=== PATIENT | male | born 1975 | race Caucasian/White ===

== ENCOUNTER 2017-07-22 04:48 | Observation (INO) ==
[2017-07-22] MEDS ORDERED: 0.9 % Sodium Chloride 1,000 ML ONE (08:18)
[2017-07-22] MEDS ORDERED: *HR* FentaNYL (PF) 100 MCG/2 ML VIAL ONE (09:12)
[2017-07-22] MEDS ORDERED: *HR* Midazolam HCl 2 MG/2 ML VIAL ONE (09:12)
[2017-07-22] MEDS ORDERED: *HR* Propofol 200 MG/20 ML VIAL IVP ONE (09:12)
[2017-07-22] MEDS ORDERED: *HR* Succinylcholine 200 MG/10 ML VIAL IVP ONE (09:12)
[2017-07-22] MEDS ORDERED: Lidocaine -MPF 2% 2 ML VIAL ONE (09:12)
[2017-07-22] MEDS ORDERED: Dexamethasone 4 MG/ML VIAL ONE (09:43)
[2017-07-22] MEDS ORDERED: Ondansetron 4 MG/2 ML VIAL ONE (09:43)
--- NOTE | 2017-07-22 10:23 | Urology - Consult Note ---
Date of Encounter: 07/22/17 Time of Encounter: 07:30 - Assessment and Plan (1) Ureteral calculus Current Visit: Yes Status: Acute Assessment and plan: 41-year-old man with a left proximal ureteral stone and evidence of hydronephrosis was admitted for pain control. He has a history of hypertension and diabetes. I recommend proceeding with a cystoscopy and left ureteral stent placement. He was informed of the risks of the procedure including but not limited to bleeding, infection, injury to other structures, need for further procedures, stent irritation, need for nephrostomy tube, need for open repair, risks unforeseen, and the risk of anesthesia. He is willing to proceed. Urology CN:HPI Consult date: 07/22/17 Reason for consult Urology: Other (left ureteral stone) History of present illness: 41-year-old man was admitted for left flank pain after being transferred from [facility]. He has been seen therefore kidney stones. He has had multiple lithotripsies. He developed left flank pain over the last 2 days. It is sharp and severe and radiates to the groin. He went to [facility] and a CT scan showed evidence of an obstructing left proximal ureteral stone. No urology coverage was available. He was then transferred to a [facility]. He has been admitted for pain control. Past Med Surg Social Fam HX - Family History Father Hx Family Genitourinary Disorders: Yes (Kidney stones) Review of Systems - Constitutional no chills, no fever(s) - EENT Nose, mouth and throat: no dizziness - Cardiovascular no chest pain - Respiratory no dyspnea - Gastrointestinal no nausea, no vomiting - Genitourinary flank pain, no hematuria - Musculoskeletal no back pain - Integumentary no erythema, no rash - Neurological no weakness - Psychiatric no suicidal ideation - Hematologic/Lymphatic no easy bleeding - Allergic/Immunologic no wheezing Exam - General physical appearance Present: well developed, well nourished, no distress - Eyes Absent: icteric - ENT Present: normal nares - Neck Present: trachea midline - Respiratory Present: normal respiratory effort - Cardiovascular Cardiovascular exam IM: RRR - Abdomen Abdomen: Present: soft Urology Results - Labs All other labs normal. - Imaging CT scan - abdomen: report reviewed, image reviewed CT scan - pelvis: report reviewed, image reviewed Consult Discharge Plan - Plan Referrals: NONE,PCP [Primary Care Provider] - Still,Steve [Family Provider] -
--- NOTE | 2017-07-22 10:28 | Operative Note ---
Date of procedure: 07/22/17 Pre-op diagnosis: Left proximal ureteral stone Post-op diagnosis: other (Left proximal ureteral stone, urethral stricture) Procedure: Cystoscopy, left ureteral stent placement, catheter placement. Implants: 16 [place] Ernst catheter 4.8 Honduran by 26 cm double-J stent. Complications: None Anesthesia: FRANKLINA Surgeon: Phil Montero Estimated blood loss (cc): 1 Specimen: none Condition: stable Disposition: PACU Procedure in Detail: Indications: Mr. Pace is a 41-year-old male who has a history of nephrolithiasis. He had a CT which showed a left proximal ureteral stone. He elected to undergo a cystoscopy and left ureteral stent placement. He was aware of the risks of the procedure including but not limited to bleeding, infection, injury to other structures, need for further procedures, stent irritation, need for nephrostomy tube, need for open repair, risks otherwise unforeseen, and the risk of anesthesia. He is willing to proceed. Procedure in Detail: After informed consent was obtained the patient was brought back to the operating room and placed in supine position. A time out was performed. General anesthesia was administered and an LMA was placed. He was then placed in the lithotomy position. He was prepped and draped in the usual sterile fashion. Cystoscopy was performed. The anterior urethra showed evidence of a wide caliber stricture. It seemed 1 enough to accommodate the scope. I began to pass the scope through it, but it began to undermine the urethra. I pulled back the scope and noted a small false passage was created. I then removed the cystoscope and obtained the semirigid ureteroscope. The ureteroscope was able to go down the urethra through the true lumen. The remaining of the urethra showed wide caliber urethral strictures. The scope was able to maneuver through these. The prostate showed lateral lobe hyperplasia. I entered into the bladder. The ureteral orifices on the normal orthotopic position. A zip wire was placed up the left ureteral orifice and brought into the kidney under fluoroscopic guidance. A second wire was placed through the semirigid ureteroscope into the bladder. The scope was offloaded leaving both wires in appropriate locations. A 4.8 [place]uran by 26 cm double-J stent was then placed with a good curl seen within the kidney and the bladder. The dangle string was removed. I then placed a 16 [place] Ernst catheter over top of the sensor wire into the bladder. The sensor wire was removed. Clear urine returned. The balloon was filled. The patient was then awakened from general anesthesia and brought to recovery room in good condition. All sponge, needle, and instrument counts were correct.
[2017-07-22 10:45] LABS: Alkaline Phosphatase 79 Units/L (34-104); BUN/Creatinine Ratio 15 (6-26); Bilirubin,Total 0.6 mg/dL (0.3-1.0); Blood Urea Nitrogen 12 mg/dL (6-20); Calcium 9.6 mg/dL (8.6-10.3); Carbon Dioxide 29 mEq/L (23-29); Chloride 106 mEq/L (98-107); Glucose 186 mg/dL (70-105); Osmolality,Calculated 293 (280-300); Potassium 4.1 mEq/L (3.5-5.1); Sodium 139 mEq/L (136-145); eGFR For African Americans > 60 (> 60); eGFR For Non-African Americans > 60 (> 60)
[2017-07-22 10:46] LABS: Alanine Aminotransferase 117 Units/L (7-52); Albumin 4.1 g/dL (3.5-5.7); Albumin/Globulin Ratio 1.9 (1.1-2.2); Aspartate Amino Transferase 59 Units/L (13-39); Globulin 2.2 g/dL (2.4-3.5); Total Protein 6.3 g/dL (6.4-8.9)
[2017-07-22] MEDS ORDERED: Naloxone 0.4 MG/ML INJ IVP PRN ×2 (11:02→11:12)
[2017-07-22] MEDS ORDERED: Acetaminophen 325 MG TABLET PO PRN ×2 (11:02→11:12)
[2017-07-22] MEDS ORDERED: Ondansetron 4 MG/2 ML VIAL IVP PRN ×2 (11:02→11:12)
--- NOTE | 2017-07-22 11:05 | Urology Progress Note ---
Date of Encounter: 07/22/17 Time of Encounter: 11:03 - Assessment and Plan (1) Ureteral calculus Current Visit: Yes Status: Acute Assessment and plan: s/p left ureteral stent and catheter placement. Okay to d/c home when comfortable. Ernst teaching. Progress Note Narrative: Doing well postoperatively. Discussed urethral stricture and catheter. Objective Initial Vital Signs Temp Pulse Resp BP Pulse Ox 97.6 F 65 16 168/101 94 07/22/17 10:21 07/22/17 10:21 07/22/17 10:21 07/22/17 10:21 07/22/17 10:21 - General physical appearance Present: well developed, well nourished, no distress - Respiratory Present: normal respiratory effort - Abdomen Present: soft - Genitourinary Urine Appearance: Present: Clear, Hematuria (Catheter in place with light pink urine.) - Labs 07/22/17 09:13 Diabetes panel 07/22/17 Range/Units 09:13 Sodium 139 (136-145) mEq/L Potassium 4.1 (3.5-5.1) mEq/L Chloride 106 (98-107) mEq/L Carbon Dioxide 29 (23-29) mEq/L BUN 12 (6-20) mg/dL Creatinine 0.80 (0.70-1.30) mg/dL Glucose 186 H (70-105) mg/dL Calcium 9.6 (8.6-10.3) mg/dL AST 59 H (13-39) Units/L ALT 117 H (7-52) Units/L Alkaline Phosphatase 79 (34-104) Units/L Albumin 4.1 (3.5-5.7) g/dL Calcium panel 07/22/17 Range/Units 09:13 Calcium 9.6 (8.6-10.3) mg/dL Albumin 4.1 (3.5-5.7) g/dL Pituitary panel 07/22/17 Range/Units 09:13 Sodium 139 (136-145) mEq/L Potassium 4.1 (3.5-5.1) mEq/L Chloride 106 (98-107) mEq/L Carbon Dioxide 29 (23-29) mEq/L BUN 12 (6-20) mg/dL Creatinine 0.80 (0.70-1.30) mg/dL Glucose 186 H (70-105) mg/dL Calcium 9.6 (8.6-10.3) mg/dL Adrenal panel 07/22/17 Range/Units 09:13 Sodium 139 (136-145) mEq/L Potassium 4.1 (3.5-5.1) mEq/L Chloride 106 (98-107) mEq/L Carbon Dioxide 29 (23-29) mEq/L BUN 12 (6-20) mg/dL Creatinine 0.80 (0.70-1.30) mg/dL Glucose 186 H (70-105) mg/dL Calcium 9.6 (8.6-10.3) mg/dL Total Bilirubin 0.6 (0.3-1.0) mg/dL AST 59 H (13-39) Units/L ALT 117 H (7-52) Units/L Alkaline Phosphatase 79 (34-104) Units/L Albumin 4.1 (3.5-5.7) g/dL Consult Discharge Plan - Plan Additional Instructions: 1. Ernst teaching, leg bag, leg strap, night bag. 2. He can remove catheter on 07/31/2016. Please provide 10ml syringe and teaching. 3. He should return for worsening hematuria, flank pain, or difficulty with catheter. 4. Please provide a 7-10 day work excuse. Referrals: Steve Donaldson [Family Provider] - NONE,PCP [Primary Care Provider] - Phil Montero MD [Partnered Physician] - (Dr. Montero's office will contact for surgery if he decides to have his stone treated here.)
[2017-07-22] MEDS ORDERED: D5% in Water 1,000 ML IVC PRN (11:12)
[2017-07-22] MEDS ORDERED: Dextrose Gel 15 GM PO PRN ×2 (11:12)
[2017-07-22] MEDS ORDERED: *HR* OxyCODONE/APAP 5/325 TABLET PO PRN (11:12)
[2017-07-22] MEDS ORDERED: *HR* Dextrose 50 % in Water (Syg) 50 ML SYRINGE IVP PRN (11:12)
[2017-07-22] MEDS ORDERED: 0.9 % Sodium Chloride 1,000 ML IVC SCH ×3 (11:12→11:15)
--- NOTE | 2017-07-22 11:18 | Internal Med History&Physical ---
Date of Encounter: 07/22/17 Time of Encounter: 11:09 Assessment and Plan (1) Ureteral calculus Current visit: Yes Status: Acute s/p left ureteral stent and catheter placement. Discuss with Dr Montero OK to DC home when comfortable discharge with yap teaching follow up with urology as outpatient (2) Diabetes mellitus Current visit: No Status: Chronic accucheck AC HS with SSI insulin Diabetic diet Qualifiers: Diabetes mellitus type: type 2 Diabetes mellitus complication status: without complication Diabetes mellitus emt intermediate insulin use: without emt intermediate use Qualified Code(s): E11.9 - Type 2 diabetes mellitus without complications (3) HTN (hypertension) Current visit: Yes Status: Acute Presently controlled- will continue with home medications Qualifiers: Hypertension type: essential hypertension Qualified Code(s): I10 - Essential (primary) hypertension Internal Medicine - H&P: HPI Chief complaint: kidney stone Admitted From: Hospital to Hospital Transfer Plans for Post Hospital Care: Home History of present illness: Mr. Pace is a 41 year old male past medical hx of DM2 and HTN,. He has been experiencing Left flank pain which started early Sat morning. It was aharp and radiate to L groin. He has hx of kidney stones and previous lithotripsies. He prsented to [facility] ER with the above complaint. CT scan showed evidence of an obstructiong left proximal ureteral stone. No urology coverage was available and he was transfered to this facillity for further workup and eval. Lab work did not revela any FABRICE. Urology consulted. He was seen by Dr Montero( urology ) and was taken to OR and had left ureteral stent and yap cathter placement. He tolerated procedure well and is hemodynamically stable at this time Past Med Surg Social Fam HX - Family History Father Hx Family Genitourinary Disorders: Yes (Kidney stones) Internal Medicine - H&P: Meds Lisinopril-HCTZ 20-12.5 [Prinzide 20-12.5] 1 each PO 07/22/17 [History] Simvastatin [Zocor] 20 mg PO DAILY 07/22/17 [History] SitaGLIPtin [Januvia] 07/22/17 [History] metFORMIN [Glucophage] 500 mg PO BIDWM 07/22/17 [History] 3 Allergy/AdvReac Type Severity Reaction Status Date / Time codeine Allergy See Verified 07/22/17 10:45 Comments Penicillins Allergy See Verified 07/22/17 10:45 Comments All Systems PM: A 10-system review of systems was performed and is negative for pertinent findings except as documented above in the HPI. - Constitutional Constitutional: no chills, no fever(s), no night sweats - EENT Eyes: no change in vision, no discharge, no pain, no photophobia Ears: no ear discharge, no ear pain, no tinnitus Nose, mouth and throat: no dysphagia, no nasal discharge, no neck pain, no sore throat - Cardiovascular Cardiovascular ROS IM: no chest pain, no diaphoresis, no dyspnea, no lightheadedness, no palpitations, no syncope - Respiratory Respiratory: no cough, no dyspnea, no wheezing, no excessive phlegm production - Gastrointestinal Gastrointestinal: no abdominal pain, no diarrhea, no hematemesis, no hematochezia, no melena, no nausea, no vomiting - Genitourinary Genitourinary ROS male: flank pain - Musculoskeletal Musculoskeletal ROS IM: no numbness, no tingling - Integumentary Integumentary IM: no rash, no unusual bruising - Neurological Neurological ROS: no confusion, no convulsions, no focal weakness, no numbness, no tingling, no tremor(s) - Hematologic/Lymphatic Hematologic/Lymphatic: no easy bruising - Constitutional Vitals: Temp Pulse Resp BP Pulse Ox 97.6 F 65 16 168/101 94 07/22/17 10:21 07/22/17 10:21 07/22/17 10:21 07/22/17 10:21 07/22/17 10:21 General appearance: Present: A&O X 3, answers questions appropriately - Head Head exam: Present: atraumatic, normocephalic - Eye Eye exam: Present: PERRL, conjuntiva pink, sclera anicteric Pupils: Present: PERRL - Neck Neck exam general surgery: Present: supple, trachea midline. Absent: lymphadenopathy - Respiratory Respiratory exam: Present: CTAB. Absent: accessory muscle use, rales, rhonchi, wheezes - Cardiovascular Cardiovascular exam: Present: RRR, +S1, +S2. Absent: diastolic murmur, gallop, rubs, systolic murmur - GI/Abdominal GI/Abdominal exam: Present: normal bowel sounds, soft, no peritoneal signs. Absent: distended, tenderness - Extremities Exam Extremities exam: Present: warm, radial pulses palpable and symmetrical. Absent : calf tenderness, cyanotic, pedal edema - Neurological Exam Neurological exam: Present: CN II-XII intact, oriented X3, no focal deficits. Absent: pronater drift, facial droop, speech deficit - Skin Skin exam: Present: dry, intact Internal Med - H&P Results - Labs CBC & Chem 7: 07/22/17 09:13 Labs: BMP 07/22/17 09:13 Sodium 139 Potassium 4.1 Chloride 106 Carbon Dioxide 29 BUN 12 Creatinine 0.80 Glucose 186 H Calcium 9.6 Liver Function 07/22/17 Range/Units 09:13 Total Bilirubin 0.6 (0.3-1.0) mg/dL AST 59 H (13-39) Units/L ALT 117 H (7-52) Units/L Alkaline Phosphatase 79 (34-104) Units/L Albumin 4.1 (3.5-5.7) g/dL - Impressions ITS Impressions Fluoroscopy 07/22/17 09:40 IMPRESSION: Intraprocedural fluoroscopic spot images as above. See separate procedure report for more information. D/ / Leonardo Scott MD / Leonardo Scott MD Interpreting Provider: Leonardo Scott MD X-Ray 07/22/17 09:40
[2017-07-22] MEDS: Insulin LISPRO 300 UNITS/3 ML VIAL SQ SCH ×2 (12:25→17:00)
[2017-07-22] MEDS: *HR* HYDROmorphone (PF) 1 MG/ML SYRINGE IVP PRN ×4 (12:48→17:03)
--- NOTE | 2017-07-22 16:20 | Discharge Summary ---
Date of Encounter: 07/22/17 Time of Encounter: 16:13 - Discharge Diagnosis (1) Ureteral calculus Priority: Primary Status: Acute Comments: s/p left ureteral stent and catheter placement. Discuss with Dr Montero OK to DC home when comfortable discharge with yap teaching follow up with urology as outpatient (2) Diabetes mellitus Priority: Secondary Status: Chronic Comments: resume home medications Qualifiers: Diabetes mellitus type: type 2 Diabetes mellitus complication status: without complication Diabetes mellitus fpc insulin use: without fpc use Qualified Code(s): E11.9 - Type 2 diabetes mellitus without complications (3) HTN (hypertension) Priority: Secondary Status: Acute Comments: resume home medications Qualifiers: Hypertension type: essential hypertension Qualified Code(s): I10 - Essential (primary) hypertension - Discharge Medications Home Medications: Lisinopril-HCTZ 20-12.5 [Prinzide 20-12.5] 1 each PO 07/22/17 [History] Simvastatin [Zocor] 20 mg PO DAILY 07/22/17 [History] SitaGLIPtin [Januvia] 07/22/17 [History] metFORMIN [Glucophage] 500 mg PO BIDWM 07/22/17 [History] Allergies/Adverse Reactions: 3 Allergy/AdvReac Type Severity Reaction Status Date / Time codeine Allergy See Verified 07/22/17 10:45 Comments Penicillins Allergy See Verified 07/22/17 10:45 Comments Procedures/tests Complete & Pending: s/p left ureteral stent and catheter placement. Date of admission: 07/22/17 10:12 Primary care physician: Jamil Meek Discharging clinician: Katie Gill Anticipated date of discharge: 07/22/17 - Patient Status Disposition: Home, Self-Care Condition: Good Functional capacity at discharge: independent ambulation Overall status at discharge: patient is back to baseline - Discharge Instructions Instructions: Renal Colic (GEN), Urinary Leg Bag (GEN) Follow Up With: Steve Donaldson [Family Provider] - Phil Montero MD [Partnered Physician] - (Dr. Montero's office will contact for surgery if he decides to have his stone treated here.) NONE,PCP [Non-Partnered Physician] - Forms: Work/School Release Additional Instructions: 1. Yap teaching, leg bag, leg strap, night bag. 2. He can remove catheter on 07/31/2016. Please provide 10ml syringe and teaching. 3. He should return for worsening hematuria, flank pain, or difficulty with catheter. 4. Please provide a 7-10 day work excuse. - Diet and Activity Activity: increase activity as tolerated Diet: advance to your usual diet Hospital course: Mr. Pace is a 41 year old male male past medical hx of DM2 and HTN,. He has been experiencing Left flank pain which started early Sat morning. It was aharp and radiate to L groin. He has hx of kidney stones and previous lithotripsies. He prsented to [facility] ER with the above complaint. CT scan showed evidence of an obstructiong left proximal ureteral stone. No urology coverage was available and he was transfered to this facillity for further workup and eval. Lab work did not revela any FABRICE. Urology consulted. He was seen by Dr Montero( urology ) and was taken to OR and had left ureteral stent and yap cathter placement. He tolerated procedure well. He was monitored, he tolerated walking, eating and pain is presently controlled. I reviewed pain medication, with him and he reports he has approx 14-15 percocet at home from the ER. I advised him to continue Percocet and to continue home medications as prescribed. He is to follow up with urology, and expressed that he understood yap care instructions. I answered questions asked by patient and his . He hemodynamically stable at this time and is ready for discharge. - Time Spent with Patient Total time spent providing and/or coordinating discharge services: - Constitutional Vitals: Temp Pulse Resp BP Pulse Ox 97.8 F 68 20 142/88 97 07/22/17 11:30 07/22/17 11:30 07/22/17 11:30 07/22/17 11:30 07/22/17 11:30 General appearance: Present: A&O X 3, answers questions appropriately - Head Head exam: Present: atraumatic, normocephalic - Eye Eye exam: Present: PERRL, conjuntiva pink, sclera anicteric Pupils: Present: PERRL - Neck Neck exam general surgery: Present: supple, trachea midline. Absent: lymphadenopathy - Respiratory Respiratory exam: Present: CTAB. Absent: accessory muscle use, rales, rhonchi, wheezes - Cardiovascular Cardiovascular exam: Present: RRR, +S1, +S2. Absent: diastolic murmur, gallop, rubs, systolic murmur - GI/Abdominal GI/Abdominal exam: Present: normal bowel sounds, soft, no peritoneal signs. Absent: distended, tenderness - Extremities Exam Extremities exam: Present: warm, radial pulses palpable and symmetrical. Absent : calf tenderness, cyanotic, pedal edema - Neurological Exam Neurological exam: Present: CN II-XII intact, oriented X3, no focal deficits. Absent: pronater drift, facial droop, speech deficit - Skin Skin exam: Present: dry, intact
--- NOTE | 2017-07-24 16:40 | Electrocardiograph Report ---
[address] [place] [address] Test Date: 2017-07-22 Pat Name: Juan Alberto Pace Department: [id number] Room: 3A16 Gender: M Legal Analyst: TIMBO : 1975 Requested By: Juni Mack Order Number: [id number] Reading MD: Darek Deras MD Measurements Intervals Elim Rate: 63 P: 19 NE: 164 QRS: 21 QRSD: 108 T: 10 QT: 384 QTc: 391 Interpretive Statements SINUS RHYTHM POSSIBLE INFERIOR MYOCARDIAL INFARCTION, PROBABLY OLD Electronically Signed On 07-24-2017 16:39:05 EST by Darek Deras MD
== END 2017-07-22 17:48 | disposition home or self-care (01) ==
LOC: 3ANU
PROVIDERS: ADMIT Urology; ATTEND Internal Medicine

== ENCOUNTER 2017-07-27 09:19 | Inpatient (IN) ==
[2017-07-27] MEDS ORDERED: 0.9 % Sodium Chloride 1,000 ML IVC ONE (09:33)
[2017-07-27] MEDS ORDERED: Ondansetron 4 MG/2 ML VIAL IVP ONE (09:33)
[2017-07-27] MEDS ORDERED: *HR* Morphine 2 MG/ML SYRINGE IVP ONE (09:33)
[2017-07-27] MEDS ORDERED: cefTRIAXone 1,000 MG in Water for inj. (sterile) 20 ML 10 ML IVP ONE (09:34)
[2017-07-27] MEDS ORDERED: Ketorolac 15 MG/ML VIAL IVP ONE (09:37)
--- NOTE | 2017-07-27 09:37 | Emergency Department Note ---
Disposition Clinical Impression: Pyelonephritis Disposition: Admitted As Inpatient Condition: Good Instructions: Acute Pyelonephritis (ED) Reasons to Return/Additional Instructions: Please take the Levaquin as prescribed for pyelonephritis. Please take the Zofran as prescribed as needed for nausea and vomiting. Please follow-up with Dr. Montero next week for evaluation. Please call his office when next available to schedule an appointment. Please return to the ER if you have worsening of symptoms, worsening pain, vomiting, unable to keep down fluids or medications or any concerns. Prescriptions: Ondansetron ODT [Zofran ODT] 4 mg SL Q6HR PRN #14 tab.rapdis PRN Reason: Nausea And Vomiting levoFLOXacin [Levaquin] 750 mg PO DAILY #14 tablet Referrals: Jamil Meek [Primary Care Provider] - Steve Donaldson [Family Provider] - Phil Montero MD [Partnered Physician] - Forms: ED Satisfaction Letter, Work/School Release General Adult HPI - General Chief complaint: ED Abdominal Pain Stated complaint: Kidney stone Time Seen by Provider: 07/27/17 09:24 Source: patient Limitations: no limitations Nursing Notes Reviewed: Yes Vital Signs Reviewed: Yes - History of Present Illness Pain Scale: 8 - Related Data Home Medications Medication Instructions Recorded Confirmed Lisinopril-HCTZ 20-12.5 [Prinzide 1 each PO 07/22/17 20-12.5] Simvastatin [Zocor] 20 mg PO DAILY 07/22/17 07/22/17 SitaGLIPtin [Januvia] 07/22/17 07/22/17 metFORMIN [Glucophage] 500 mg PO BIDWM 07/22/17 07/22/17 Previous Rx's Medication Instructions Recorded Ondansetron ODT [Zofran ODT] 4 mg SL Q6HR PRN #14 tab.rapdis 07/27/17 levoFLOXacin [Levaquin] 750 mg PO DAILY #14 tablet 07/27/17 Allergies Allergy/AdvReac Type Severity Reaction Status Date / Time codeine Allergy See Verified 07/22/17 10:45 Comments Penicillins Allergy See Verified 07/22/17 10:45 Comments Past Medical History - Past Medical History Medical history: Reports: diabetes, hyperlipidemia, hypertension, kidney stones - Social History Smoking Status: Never smoker Alcohol use: Reports: none Drug use: Reports: none Physical Exam - General Limitations: no limitations General appearance: alert, in no apparent distress Course Vital Signs Temperature 100.0 F H 07/27/17 09:21 Pulse Rate 105 07/27/17 09:21 Respiratory Rate 18 07/27/17 09:21 Blood Pressure 148/82 07/27/17 09:21 O2 Sat by Pulse Oximetry 97 07/27/17 09:21 Temperature 101.4 F H 07/27/17 11:58 Pulse Rate 104 07/27/17 11:58 Respiratory Rate 20 07/27/17 11:58 Blood Pressure 158/90 07/27/17 11:58 O2 Sat by Pulse Oximetry 100 07/27/17 11:58 Oxygen Delivery Oxygen Delivery Room Air Medical Decision Making - MDM Narrative Medical decision making narrative: This documentation is done with the assistance of Dragon dictation. Despite efforts to ensure accuracy, there may be inaccuracies in line service technician or spelling and typographical errors. I examined this patient and my medical decision-making was reviewed with the Resident Physician. I agree with the documented findings, disposition and treatment plan as described except to the extent set forth below. I evaluated this patient on arrival with Dr. Rosen, I agree with his evaluation and management plan, supervise care the patient that stay. Patient's of multiple kidney stones in the past. This wounds on the left side. 8mm stone per him and records. He was admitted here on Anthony Cristine they placed a stent but were not able to remove the stone. He is getting a little bit of fever now. Some nausea pain. Going to administer medications to make him more comfortable starting him on IV antibiotics. Image the area check labs and speak with urology. He is in agreement with this plan. He has a nonsurgical abdomen. 1049 hrs.: Patient states he uses BiPAP at home are also have apnea. So we have ordered that for him now. Waiting on CT scan. He is feeling better. Abdomen/Pelvis CT 07/27/17 09:33 IMPRESSION: Nonobstructive calculi in the bilateral kidneys. A left-sided double pigtail ureteral catheter is in good position. No evidence of left or right hydronephrosis or obstructive uropathy. Nonspecific fat stranding surrounding the bilateral kidneys and the left ureter. The current study is not optimal to evaluate for pyelonephritis. Infection or inflammation particularly in the left kidney and ureter is not excluded. Recommend correlation with urinalysis. Mild sigmoid diverticulosis without evidence of acute diverticulitis. Mild fatty liver disease. Dependent and discoid atelectasis at the bilateral lung bases. D/ / Asher Andino MD / Asher Andino MD Interpreting Provider: Asher Andino MD 1100 hrs.: Patient's CT is back. He has no elevation in his white count. Renal function is stable. Werewith him about what he would prefer to do with her go home or be admitted. We will speak with urology also. 1200 hrs.: Urology thought the patient could go home but patient's getting more febrile and getting riders here. I think be better for him to come into the hospital. Patient's in agreement with plan. Has gotten IV antibiotics already. Fluids acetaminophen and then will reassess. He is in agreement with plan. - Lab Data Result diagrams: 07/27/17 09:47 07/27/17 09:47 Lab Results 07/27/17 07/27/17 07/27/17 Range/Units 09:47 09:47 09:50 WBC 9.8 (4.3-11.1) K/mcL RBC 5.21 (4.19-5.50) M/mcL Hgb 15.2 (12.9-16.9) g/dL Hct 43.1 (37.5-50.1) % MCV 82.7 L (83.0-100.0) fL MCH 29.2 (28.0-33.3) pg MCHC 35.3 (31.6-35.5) g/dL RDW 12.0 (11.5-14.5) % Plt Count 192 (140-400) K/mcL MPV 10.1 (9.4-12.4) fL Immature Gran % 0.4 (0-4) % Seg Neutrophils % 84.6 % Lymphocytes % 6.2 % Monocytes % 8.1 % Eosinophils % 0.5 % Basophils % 0.2 % Neutrophils # 8.3 (1.6-8.9) K/mcL Lymphocytes # 0.6 (0.6-4.6) K/mcL Monocytes # 0.8 (0.0-1.3) K/mcL Eosinophils # 0.1 (0.0-0.6) K/mcL Basophils # 0.0 (0.0-0.2) K/mcL Sodium 133 L (136-145) mEq/L Potassium 4.0 (3.5-5.1) mEq/L Chloride 99 (98-107) mEq/L Carbon Dioxide 26 (23-29) mEq/L BUN 14 (6-20) mg/dL Creatinine 0.87 (0.70-1.30) mg/dL Est GFR ( Amer) > 60 (> 60) Est GFR (Non-Af Amer) > 60 (> 60) BUN/Creatinine Ratio 16 (6-26) Glucose 222 H (70-105) mg/dL Calculated Osmolality 283 (280-300) Lactic Acid 1.6 (0.5-2.2) mmol/L Calcium 10.4 H (8.6-10.3) mg/dL Urine Color (Yellow) Urine Clarity (Clear) Urine pH (5.0-8.0) pH Units Ur Specific [place] (1.010-1.025) Urine Protein (Neg-Trace) mg/dL Urine Glucose (UA) (Normal) mg/dL Urine Ketones (Negative) mg/dL Urine Blood (Negative) Urine Nitrite (Negative) Urine Bilirubin (Negative) Urine Urobilinogen (Normal) mg/dL Ur Leukocyte Esterase (Negative) Urine Microscopic RBC (0-3) per hpf Urine Microscopic WBC (0-3) per hpf Ur Squamous Epith Cells (None-Few) per lpf Urine Bacteria (None-Few) per hpf Hyaline Casts (None-Few) per lpf Ur Culture Indicated? (NO) 07/27/17 Range/Units 10:03 WBC (4.3-11.1) K/mcL RBC (4.19-5.50) M/mcL Hgb (12.9-16.9) g/dL Hct (37.5-50.1) % MCV (83.0-100.0) fL MCH (28.0-33.3) pg MCHC (31.6-35.5) g/dL RDW (11.5-14.5) % Plt Count (140-400) K/mcL MPV (9.4-12.4) fL Immature Gran % (0-4) % Seg Neutrophils % % Lymphocytes % % Monocytes % % Eosinophils % % Basophils % % Neutrophils # (1.6-8.9) K/mcL Lymphocytes # (0.6-4.6) K/mcL Monocytes # (0.0-1.3) K/mcL Eosinophils # (0.0-0.6) K/mcL Basophils # (0.0-0.2) K/mcL Sodium (136-145) mEq/L Potassium (3.5-5.1) mEq/L Chloride (98-107) mEq/L Carbon Dioxide (23-29) mEq/L BUN (6-20) mg/dL Creatinine (0.70-1.30) mg/dL Est GFR ( Amer) (> 60) Est GFR (Non-Af Amer) (> 60) BUN/Creatinine Ratio (6-26) Glucose (70-105) mg/dL Calculated Osmolality (280-300) Lactic Acid (0.5-2.2) mmol/L Calcium (8.6-10.3) mg/dL Urine Color Dark Yellow (Yellow) Urine Clarity Turbid A (Clear) Urine pH 6.5 (5.0-8.0) pH Units Ur Specific [place] 1.023 (1.010-1.025) Urine Protein 100 H (Neg-Trace) mg/dL Urine Glucose (UA) 250 H (Normal) mg/dL Urine Ketones Negative (Negative) mg/dL Urine Blood Large H (Negative) Urine Nitrite Negative (Negative) Urine Bilirubin Negative (Negative) Urine Urobilinogen Normal (Normal) mg/dL Ur Leukocyte Esterase Moderate H (Negative) Urine Microscopic RBC TNTC H (0-3) per hpf Urine Microscopic WBC 50-100 H (0-3) per hpf Ur Squamous Epith Cells Few (None-Few) per lpf Urine Bacteria Many H (None-Few) per hpf Hyaline Casts None Seen (None-Few) per lpf Ur Culture Indicated? YES A (NO)
--- NOTE | 2017-07-27 09:43 | Emergency Department Note ---
Disposition Clinical Impression: Pyelonephritis Disposition: Admitted As Inpatient Condition: Good Instructions: Acute Pyelonephritis (ED) Reasons to Return/Additional Instructions: Please take the Levaquin as prescribed for pyelonephritis. Please take the Zofran as prescribed as needed for nausea and vomiting. Please follow-up with Dr. Montero next week for evaluation. Please call his office when next available to schedule an appointment. Please return to the ER if you have worsening of symptoms, worsening pain, vomiting, unable to keep down fluids or medications or any concerns. Prescriptions: Ondansetron ODT [Zofran ODT] 4 mg SL Q6HR PRN #14 tab.rapdis PRN Reason: Nausea And Vomiting levoFLOXacin [Levaquin] 750 mg PO DAILY #14 tablet Referrals: Jamil Meek [Primary Care Provider] - Steve Donaldson [Family Provider] - Phil Montero MD [Partnered Physician] - Forms: Work/School Release, ED Satisfaction Letter Time of Disposition: 11:22 Abdominal Pain HPI - General Chief Complaint: ED Abdominal Pain Stated Complaint: Kidney stone Time Seen by Provider: 07/27/17 09:24 Source: patient Mode of arrival: private vehicle Limitations: no limitations Nursing Notes Reviewed: Yes Vital Signs Reviewed: Yes - History of Present Illness HPI Narrative: 41-year-old male history of multiple nephrolithiasis in the past who presents to the ER to the left flank pain and fever nausea. Patient states he started having pain on Anthony Cristine and was noted to have an 8 mm proximal ureteral stone an outside facility and transferred here due to lack of availability of urology. Patient underwent cystoscopy with left ureteral stent placement. Reports he went home feeling okay but then started having pain again yesterday into today. Describes it as sharp left-sided flank pain. States is worse whenever he tries to have a bowel movement. He also noted have a fever of 101 this morning at home. No flulike symptoms. No vomiting or diarrhea. Reports his urine has cleared up. He did have a Ernst placed and was left after the procedure. No other complaints. Pt Subjective Complaint: flank pain Onset (ago): day(s) Consistency: intermittent Location: L flank Pain Severity: severe Pain Scale: 8 Quality: stabbing Radiation: none Migration to: no migration Improves with: nothing Worsens with: nothing Associated symptoms: Reports: nausea, fever. Denies: vomiting, diarrhea, dysuria, hematuria Treatments prior to arrival: none - Related Data Home Medications Medication Instructions Recorded Confirmed Lisinopril-HCTZ 20-12.5 [Prinzide 1 each PO 07/22/17 20-12.5] Simvastatin [Zocor] 20 mg PO DAILY 07/22/17 07/22/17 SitaGLIPtin [Januvia] 07/22/17 07/22/17 metFORMIN [Glucophage] 500 mg PO BIDWM 07/22/17 07/22/17 Previous Rx's Medication Instructions Recorded Ondansetron ODT [Zofran ODT] 4 mg SL Q6HR PRN #14 tab.rapdis 07/27/17 levoFLOXacin [Levaquin] 750 mg PO DAILY #14 tablet 07/27/17 Allergies Allergy/AdvReac Type Severity Reaction Status Date / Time codeine Allergy See Verified 07/22/17 10:45 Comments Penicillins Allergy See Verified 07/22/17 10:45 Comments All systems ED: reviewed and negative except as stated. Constitutional: Reports: fever Cardiovascular: Denies: chest pain Respiratory: Denies: dyspnea Gastrointestinal: Reports: abdominal pain, nausea. Denies: vomiting, diarrhea Genitourinary: Denies: dysuria, hematuria Musculoskeletal: Reports: back pain Abdominal Pain PMH - Past Medical History Medical history: Reports: diabetes, hyperlipidemia, hypertension, kidney stones Male Surgical History: Reports: non-contributory - Social History Smoking status: Never smoker Alcohol use: Reports: none Drug use: Reports: none Physical Exam - General Limitations: no limitations General appearance: alert, in no apparent distress - Head Head exam: atraumatic, normocephalic - Eye Eye exam: Present: normal appearance - ENT ENT exam: normal exam - Neck Neck exam: Present: normal inspection, full ROM - Chest Chest inspection: Present: normal inspection, symmetric chest wall rise - Respiratory Respiratory exam: Present: normal lung sounds bilaterally - Cardiovascular Cardiovascular exam: Present: regular rate, normal rhythm, normal heart sounds - Abdominal Exam Abdominal exam: Present: soft, Non-Tender. Absent: tenderness, distention, guarding, rigidity - Extremities Exam Extremities exam: Present: normal inspection, full ROM - Expanded Upper Extremity Exam Shoulder exam: Present: normal inspection, full ROM Arm exam: Present: normal inspection, full ROM Elbow exam: Present: normal inspection, full ROM Forearm/Wrist exam: Present: normal inspection, full ROM Hand exam: Present: normal inspection, full ROM - Expanded Lower Extremity Exam Hip/Pelvis exam: Present: normal inspection, full ROM Upper leg exam: Present: normal inspection, full ROM Knee exam: Present: normal inspection, full ROM Lower leg exam: Present: normal inspection, full ROM Ankle exam: Present: normal inspection, full ROM Foot/toe exam: Present: normal inspection, full ROM - Back Exam Back exam: Present: CVA tenderness (L) - Neurological Exam Neurological exam: Present: alert, other (GCS 15, Nonfocal ) - Psychiatric Psychiatric exam: Present: normal affect - Skin Skin exam: Present: warm, dry, intact Course Course Narrative: Patient seen and examined. Vital signs reviewed. We will obtain a CT scan of the abdomen and pelvis given his fever and recent admission patient as well as labs and urinalysis. Patient given IV morphine, Benadryl, Toradol and Rocephin. - Reevaluation(s) Reevaluation #1: Patient reevaluated currently feeling much better. Discussed CT report as well as labs and urinalysis. Waiting on urology consultation. Reevaluation #2: Patient having rigors in the room with recurrence of fever. We will discuss with the hospitalist for admission. - Consultations Consultation #1: I spoke with the on-call urologist Dr. Palma. Discussed the patient's history exam imaging and labs to date. He reports he believes the patient can be treated as an outpatient to start on Bactrim or for quinolone for pyelonephritis. He also needs to be seen next week by Dr. Montero for follow- up. Vital Signs Temperature 100.0 F H 07/27/17 09:21 Pulse Rate 105 07/27/17 09:21 Respiratory Rate 18 07/27/17 09:21 Blood Pressure 148/82 07/27/17 09:21 O2 Sat by Pulse Oximetry 97 07/27/17 09:21 Temperature 101.4 F H 07/27/17 11:58 Pulse Rate 104 07/27/17 11:58 Respiratory Rate 20 07/27/17 11:58 Blood Pressure 158/90 07/27/17 11:58 O2 Sat by Pulse Oximetry 100 07/27/17 11:58 Oxygen Delivery Oxygen Delivery Room Air Abdominal Pain - MDM Narrative Medical decision making narrative: 41-year-old male presents to the ER due to fever left flank pain and nausea. Recent issue mentation with a ureteral stent due to proximal obstructive uropathy. Patient noted to be febrile 100 here as well as nauseated. His abdominal exam is nonsurgical. CT scan demonstrates bilateral fat stranding with some inflammation around the left ureter. Urinalysis demonstrates a UTI however he also has the stent in so likely contaminant. White count normal. Renal function within normal limits. No prior cultures available. Case discussed with the urologist combination man who recommends outpatient antibiotics with follow-up with his urologist this coming week. Upon reevaluation the patient was noted to be febrile again with rigors and recurrence of flank pain. We will discuss with the hospitalist and admitted for pyelonephritis. - Lab Data Lab results reviewed: Yes I reviewed the patient's lab results. Result diagrams: 07/27/17 09:47 07/27/17 09:47 Lab Results 07/27/17 07/27/17 07/27/17 Range/Units 09:47 09:47 09:50 WBC 9.8 (4.3-11.1) K/mcL RBC 5.21 (4.19-5.50) M/mcL Hgb 15.2 (12.9-16.9) g/dL Hct 43.1 (37.5-50.1) % MCV 82.7 L (83.0-100.0) fL MCH 29.2 (28.0-33.3) pg MCHC 35.3 (31.6-35.5) g/dL RDW 12.0 (11.5-14.5) % Plt Count 192 (140-400) K/mcL MPV 10.1 (9.4-12.4) fL Immature Gran % 0.4 (0-4) % Seg Neutrophils % 84.6 % Lymphocytes % 6.2 % Monocytes % 8.1 % Eosinophils % 0.5 % Basophils % 0.2 % Neutrophils # 8.3 (1.6-8.9) K/mcL Lymphocytes # 0.6 (0.6-4.6) K/mcL Monocytes # 0.8 (0.0-1.3) K/mcL Eosinophils # 0.1 (0.0-0.6) K/mcL Basophils # 0.0 (0.0-0.2) K/mcL Sodium 133 L (136-145) mEq/L Potassium 4.0 (3.5-5.1) mEq/L Chloride 99 (98-107) mEq/L Carbon Dioxide 26 (23-29) mEq/L BUN 14 (6-20) mg/dL Creatinine 0.87 (0.70-1.30) mg/dL Est GFR ( Amer) > 60 (> 60) Est GFR (Non-Af Amer) > 60 (> 60) BUN/Creatinine Ratio 16 (6-26) Glucose 222 H (70-105) mg/dL Calculated Osmolality 283 (280-300) Lactic Acid 1.6 (0.5-2.2) mmol/L Calcium 10.4 H (8.6-10.3) mg/dL Urine Color (Yellow) Urine Clarity (Clear) Urine pH (5.0-8.0) pH Units Ur Specific [place] (1.010-1.025) Urine Protein (Neg-Trace) mg/dL Urine Glucose (UA) (Normal) mg/dL Urine Ketones (Negative) mg/dL Urine Blood (Negative) Urine Nitrite (Negative) Urine Bilirubin (Negative) Urine Urobilinogen (Normal) mg/dL Ur Leukocyte Esterase (Negative) Urine Microscopic RBC (0-3) per hpf Urine Microscopic WBC (0-3) per hpf Ur Squamous Epith Cells (None-Few) per lpf Urine Bacteria (None-Few) per hpf Hyaline Casts (None-Few) per lpf Ur Culture Indicated? (NO) 07/27/17 Range/Units 10:03 WBC (4.3-11.1) K/mcL RBC (4.19-5.50) M/mcL Hgb (12.9-16.9) g/dL Hct (37.5-50.1) % MCV (83.0-100.0) fL MCH (28.0-33.3) pg MCHC (31.6-35.5) g/dL RDW (11.5-14.5) % Plt Count (140-400) K/mcL MPV (9.4-12.4) fL Immature Gran % (0-4) % Seg Neutrophils % % Lymphocytes % % Monocytes % % Eosinophils % % Basophils % % Neutrophils # (1.6-8.9) K/mcL Lymphocytes # (0.6-4.6) K/mcL Monocytes # (0.0-1.3) K/mcL Eosinophils # (0.0-0.6) K/mcL Basophils # (0.0-0.2) K/mcL Sodium (136-145) mEq/L Potassium (3.5-5.1) mEq/L Chloride (98-107) mEq/L Carbon Dioxide (23-29) mEq/L BUN (6-20) mg/dL Creatinine (0.70-1.30) mg/dL Est GFR ( Amer) (> 60) Est GFR (Non-Af Amer) (> 60) BUN/Creatinine Ratio (6-26) Glucose (70-105) mg/dL Calculated Osmolality (280-300) Lactic Acid (0.5-2.2) mmol/L Calcium (8.6-10.3) mg/dL Urine Color Dark Yellow (Yellow) Urine Clarity Turbid A (Clear) Urine pH 6.5 (5.0-8.0) pH Units Ur Specific [place] 1.023 (1.010-1.025) Urine Protein 100 H (Neg-Trace) mg/dL Urine Glucose (UA) 250 H (Normal) mg/dL Urine Ketones Negative (Negative) mg/dL Urine Blood Large H (Negative) Urine Nitrite Negative (Negative) Urine Bilirubin Negative (Negative) Urine Urobilinogen Normal (Normal) mg/dL Ur Leukocyte Esterase Moderate H (Negative) Urine Microscopic RBC TNTC H (0-3) per hpf Urine Microscopic WBC 50-100 H (0-3) per hpf Ur Squamous Epith Cells Few (None-Few) per lpf Urine Bacteria Many H (None-Few) per hpf Hyaline Casts None Seen (None-Few) per lpf Ur Culture Indicated? YES A (NO) - Radiology Data Radiology results reviewed: Yes I reviewed the patient's radiology results. Abdomen/Pelvis CT 07/27/17 09:33 IMPRESSION: Nonobstructive calculi in the bilateral kidneys. A left-sided double pigtail ureteral catheter is in good position. No evidence of left or right hydronephrosis or obstructive uropathy. Nonspecific fat stranding surrounding the bilateral kidneys and the left ureter. The current study is not optimal to evaluate for pyelonephritis. Infection or inflammation particularly in the left kidney and ureter is not excluded. Recommend correlation with urinalysis. Mild sigmoid diverticulosis without evidence of acute diverticulitis. Mild fatty liver disease. Dependent and discoid atelectasis at the bilateral lung bases. D/ / Asher Andino MD / Asher Andino MD Interpreting Provider: Asher Andino MD Ja - Ja Situation: Demographics, MOA Background: Presenting Complaint, Relevant PMH, Meds, & Allergies Assessment: Course and respsone to treatment, Patient/Family Expectation, Pertinant Lab Results Recommendation: Barrier(s) to disposition, Recommendation based on pending studies, treatments, or consults Ja Report Given to: Dr. Jurgen Peres Repor Time: 12:52
[2017-07-27 09:52] LABS: Basophils % 0.2 %; Eosinophils # 0.1 K/mcL (0.0-0.6); Eosinophils % 0.5 %; Hematocrit 43.1 % (37.5-50.1); Hemoglobin 15.2 g/dL (12.9-16.9); Immature Granulocytes % 0.4 % (0-4); Lymphocytes # 0.6 K/mcL (0.6-4.6); Lymphocytes % 6.2 %; Mean Corpuscular HGB Conc 35.3 g/dL (31.6-35.5); Mean Corpuscular Hemoglobin 29.2 pg (28.0-33.3); Mean Corpuscular Volume 82.7 fL (83.0-100.0); Mean Platelet Volume 10.1 fL (9.4-12.4); Monocytes # 0.8 K/mcL (0.0-1.3); Monocytes % 8.1 %; Neutrophils # 8.3 K/mcL (1.6-8.9); Platelet Count 192 K/mcL (140-400); Red Blood Count 5.21 M/mcL (4.19-5.50); Segmented Neutrophils % 84.6 %
[2017-07-27 10:09] LABS: BUN/Creatinine Ratio 16 (6-26); Blood Urea Nitrogen 14 mg/dL (6-20); Calcium 10.4 mg/dL (8.6-10.3); Carbon Dioxide 26 mEq/L (23-29); Chloride 99 mEq/L (98-107); Glucose 222 mg/dL (70-105); Osmolality,Calculated 283 (280-300); Sodium 133 mEq/L (136-145); eGFR For African Americans > 60 (> 60); eGFR For Non-African Americans > 60 (> 60)
[2017-07-27 10:12] LABS: Bilirubin,Urine Negative (Negative); Blood,Urine Large (Negative); Clarity,Urine Turbid (Clear); Color,Urine Dark Yellow (Yellow); Glucose,Urine (UA) 250 mg/dL (Normal); Ketones,Urine Negative (Negative); Leukocyte Esterase,Urine Moderate (Negative); Nitrite,Urine Negative (Negative); PH,Urine 6.5 pH Units (5.0-8.0); Protein,Urine 100 mg/dL (Neg-Trace); Specific Gravity,Urine 1.023 (1.010-1.025); Urobilinogen,Urine Normal (Normal)
[2017-07-27 10:15] LABS: Bacteria,Urine Many per hpf (None-Few); Hyaline Casts,Urine None Seen per lpf (None-Few); RBC,Urine TNTC per hpf (0-3); Squamous Epithelial Cell,Urine Few per lpf (None-Few); WBC,Urine 50-100 per hpf (0-3)
[2017-07-27] MEDS ORDERED: levoFLOXacin 750 MG TABLET PO ONE (11:23)
[2017-07-27] MEDS ORDERED: Acetaminophen 325 MG TABLET PO ONE (12:01)
[2017-07-27] MEDS: 0.9 % Sodium Chloride 1,000 ML IVC SCH ×3 (13:08→20:16)
--- NOTE | 2017-07-27 15:22 | Internal Med History&Physical ---
Date of Encounter: 08/24/17 Time of Encounter: 15:20 Assessment and Plan (1) Pyelonephritis Status: Resolved We will start antibiotic regimen please Levaquin and ceftriaxone since patient has recent and instrument procedure Start acetaminophen 650 every 6 hours for fever Start IV hydration with isotonic saline Obtain clean-catch urinalysis and culture sensitivity Obtain blood cultures Urology was contacted and believe the patient can follow-up as an outpatient (2) HTN (hypertension) Status: Acute We will continue home medication, start patient on when necessary antihypertensives for systolic blood pressure monitor 118 systolic blood pressure more than 110 Qualifiers: Hypertension type: essential hypertension Qualified Code(s): I10 - Essential (primary) hypertension (3) Diabetes mellitus Status: Chronic We will continue home medication, start the patient adequate check was moderate insulin coverage, obtain hemoglobin A1c Qualifiers: Diabetes mellitus type: type 2 Diabetes mellitus complication status: without complication Diabetes mellitus mcfp insulin use: without director long term care use Qualified Code(s): E11.9 - Type 2 diabetes mellitus without complications (4) Ureteral calculus Status: Acute The patient status post stent placement, or lesion was consulted and advised the patient could follow-up as an outpatient (5) DVT prophylaxis Status: Acute We will start SCD as well as 5000 heparin twice a day. Internal Medicine - H&P: HPI Chief complaint: ABDOMINAL PAIN History of present illness: Mr. Pace is a 41 year old male with PMH of multiple kidney stones in the pastwho was admitted here on [facility] where hae had stent placed but were not able to remove the stone who presented with fever, nausea and abdominal pain pain. Ct scan revealed Nonobstructive calculi in the bilateral kidneys. A left-sided double pigtail ureteral catheter is in good position. No evidence of left or right hydronephrosis or obstructive uropathy. Nonspecific fat stranding surrounding the bilateral kidneys and the left ureter. Pyelonephritis. Infection or inflammation particularly in the left kidney and ureter iwas not excluded. Urology was contacted and they thought the patient could go home but patient's was febrile and patinet was admitted for further evaluation and management . Past Med Surg Social Fam HX - Past Medical History Medical history: diabetes, hyperlipidemia, hypertension, kidney stones - Social History Smoking Status: Never smoker Alcohol use: none Drug use: none - Family History Grandfather Cause of : lung ca Hx Family Cancer: Yes Internal Medicine - H&P: Meds Lisinopril-HCTZ 20-12.5 [Prinzide 20-12.5] 1 tab PO DAILY 07/22/17 [History] Simvastatin [Zocor] 20 mg PO DAILY 07/22/17 [History] metFORMIN [Glucophage] 500 mg PO BID 07/22/17 [History] SitaGLIPtin [Januvia] 25 mg PO DAILY 07/27/17 [History] Docusate [Colace] 100 mg PO BID #60 capsule 08/13/17 [Rx] OxyCODONE/APAP 5/325 [Percocet 5/325 MG] 1 each PO Q6HR PRN #20 tablet 08/13/17 [Rx] Phenazopyridine HCl [Pyridium] 200 mg PO TIDAC #12 tab 08/13/17 [Rx] Sulfamethoxazole/Trimeth DS [Bactrim Ds] 1 tab PO BID 08/13/17 [History] 3 Allergy/AdvReac Type Severity Reaction Status Date / Time codeine Allergy Difficulty Verified 08/13/17 07:34 Breathing/ HIVES Penicillins Allergy Difficulty Verified 08/13/17 07:34 Breathing/ HIVES All Systems PM: A 10-system review of systems was performed and is negative for pertinent findings except as documented above in the HPI. - Constitutional Constitutional: chills, fever(s), no night sweats - Respiratory Respiratory: no cough, no dyspnea, no wheezing, no excessive phlegm production - Gastrointestinal Gastrointestinal: no abdominal pain, no diarrhea, no hematemesis, no hematochezia, no melena, no nausea, no vomiting - Neurological Neurological ROS: no confusion, no convulsions, no focal weakness, no numbness, no tingling, no tremor(s) - Constitutional Vitals: Temp Pulse Resp BP Pulse Ox 101.6 F H 103 16 146/79 94 07/27/17 14:39 07/27/17 14:39 07/27/17 14:39 07/27/17 14:39 07/27/17 14:39 General appearance: Present: A&O X 3 - Respiratory Respiratory exam: Present: CTAB. Absent: accessory muscle use, rales, rhonchi, wheezes - Cardiovascular Cardiovascular exam: Present: RRR, +S1, +S2. Absent: diastolic murmur, gallop, rubs, systolic murmur - GI/Abdominal GI/Abdominal exam: Present: normal bowel sounds, soft, no peritoneal signs. Absent: distended, tenderness - Extremities Exam Extremities exam: Present: warm, radial pulses palpable and symmetrical. Absent : calf tenderness, cyanotic, pedal edema Internal Med - H&P Results - Labs CBC & Chem 7: 07/31/17 04:45 07/31/17 04:45
[2017-07-27] MEDS ORDERED: *HR* Morphine 2 MG/ML SYRINGE IVP PRN (15:34)
[2017-07-27] MEDS ORDERED: Naloxone 0.4 MG/ML INJ IVP PRN (15:34)
[2017-07-27] MEDS ORDERED: MOM Conc 10 ML UD.LIQ PO PRN (15:34)
[2017-07-27] MEDS ORDERED: Ondansetron ODT 4 MG TAB.RAPDIS SL PRN (15:34)
[2017-07-27] MEDS: Acetaminophen 325 MG TABLET PO PRN (16:40)
[2017-07-27 16:42] LABS: Basophils % 0.1 %; Eosinophils % 0.2 %; Hemoglobin 14.2 g/dL (12.9-16.9); Immature Granulocytes % 0.3 % (0-4); Lymphocytes # 0.7 K/mcL (0.6-4.6); Lymphocytes % 6.8 %; Mean Corpuscular HGB Conc 34.6 g/dL (31.6-35.5); Mean Corpuscular Hemoglobin 29.5 pg (28.0-33.3); Mean Corpuscular Volume 85.1 fL (83.0-100.0); Mean Platelet Volume 9.7 fL (9.4-12.4); Monocytes # 0.9 K/mcL (0.0-1.3); Monocytes % 8.3 %; Neutrophils # 8.8 K/mcL (1.6-8.9); Platelet Count 162 K/mcL (140-400); Red Blood Count 4.82 M/mcL (4.19-5.50); Red Cell Distribution Width 12.1 % (11.5-14.5); Segmented Neutrophils % 84.3 %
[2017-07-27 16:45] LABS: INR 1.3; Prothrombin Time 14.3 Seconds (9.4-12.1)
[2017-07-27 16:48] LABS: Activated Partial Thrombo Time 27.7 Seconds (26.0-36.0)
[2017-07-27 16:53] LABS: Alanine Aminotransferase 52 Units/L (7-52); Albumin/Globulin Ratio 1.5 (1.1-2.2); Alkaline Phosphatase 96 Units/L (34-104); Aspartate Amino Transferase 19 Units/L (13-39); BUN/Creatinine Ratio 15 (6-26); Bilirubin,Direct 0.2 mg/dL (0.0-0.2); Bilirubin,Indirect 0.7 mg/dL (0.0-1.2); Bilirubin,Total 0.9 mg/dL (0.3-1.0); Blood Urea Nitrogen 16 mg/dL (6-20); Calcium 9.7 mg/dL (8.6-10.3); Carbon Dioxide 29 mEq/L (23-29); Chloride 101 mEq/L (98-107); Globulin 2.7 g/dL (2.4-3.5); Glucose 175 mg/dL (70-105); Osmolality,Calculated 283 (280-300); Potassium 4.2 mEq/L (3.5-5.1); Sodium 134 mEq/L (136-145); Total Protein 6.7 g/dL (6.4-8.9); eGFR For African Americans > 60 (> 60); eGFR For Non-African Americans > 60 (> 60)
[2017-07-27] MEDS: *HR* Metformin 500 MG TABLET PO SCH (19:43)
[2017-07-27] MEDS: *HR* Heparin 5,000 UNIT/ML VIAL SQ SCH (19:44)
[2017-07-27] MEDS: *HR* OxyCODONE/APAP 5/325 TABLET PO PRN (20:12)
[2017-07-27] MEDS: Ibuprofen 400 MG TABLET PO PRN (22:24)
[2017-07-27] MEDS ORDERED: Ketorolac 30 MG/ML VIAL IVP ONE (23:34)
[2017-07-28] MEDS: 0.9 % Sodium Chloride 1,000 ML IVC SCH ×3 (00:08→18:25)
[2017-07-28] MEDS: Acetaminophen 325 MG TABLET PO PRN (02:39)
[2017-07-28 05:31] LABS: Hematocrit 38.4 % (37.5-50.1); Hemoglobin 13.1 g/dL (12.9-16.9); Mean Corpuscular HGB Conc 34.1 g/dL (31.6-35.5); Mean Corpuscular Hemoglobin 29.1 pg (28.0-33.3); Mean Corpuscular Volume 85.3 fL (83.0-100.0); Mean Platelet Volume 10.3 fL (9.4-12.4); Platelet Count 136 K/mcL (140-400); Red Cell Distribution Width 12.2 % (11.5-14.5)
[2017-07-28 05:41] LABS: INR 1.3; Prothrombin Time 14.5 Seconds (9.4-12.1)
[2017-07-28 05:44] LABS: Activated Partial Thrombo Time 27.9 Seconds (26.0-36.0); Alanine Aminotransferase 42 Units/L (7-52); Albumin 3.4 g/dL (3.5-5.7); Albumin/Globulin Ratio 1.5 (1.1-2.2); Alkaline Phosphatase 84 Units/L (34-104); Aspartate Amino Transferase 17 Units/L (13-39); BUN/Creatinine Ratio 17 (6-26); Bilirubin,Total 0.9 mg/dL (0.3-1.0); Blood Urea Nitrogen 16 mg/dL (6-20); Calcium 9.1 mg/dL (8.6-10.3); Carbon Dioxide 26 mEq/L (23-29); Chloride 103 mEq/L (98-107); Cholesterol 109 mg/dL (< 200); Globulin 2.3 g/dL (2.4-3.5); Glucose 187 mg/dL (70-105); HDL Cholesterol 22 mg/dL (40-59); LDL Cholesterol,Calculated 61 mg/dL (0-99); Magnesium 1.5 mg/dL (1.6-2.6); Osmolality,Calculated 284 (280-300); Phosphorous 1.8 mg/dL (2.7-4.5); Sodium 134 mEq/L (136-145); Total Protein 5.7 g/dL (6.4-8.9); Triglycerides 130 mg/dL (< 150); eGFR For African Americans > 60 (> 60); eGFR For Non-African Americans > 60 (> 60)
[2017-07-28] MEDS: *HR* Heparin 5,000 UNIT/ML VIAL SQ SCH ×2 (06:12→18:26)
[2017-07-28] MEDS ORDERED: *HR* Labetalol 20 MG/4 ML SYRINGE IVP PRN (08:30)
[2017-07-28] MEDS: Lisinopril-HCTZ 20-12.5mg TABLET PO SCH (09:57)
[2017-07-28] MEDS: *HR* Metformin 500 MG TABLET PO SCH (09:57)
[2017-07-28] MEDS: *HR* SitaGLIPtin 25 MG TABLET PO SCH (09:57)
[2017-07-28] MEDS: *HR* OxyCODONE/APAP 5/325 TABLET PO PRN ×3 (09:58→22:02)
[2017-07-28] MEDS ORDERED: cefTRIAXone 2,000 MG in Water for inj. (sterile) 20 ML 20 ML IVP SCH (10:00)
[2017-07-28] MEDS: Levofloxacin 750 MG/150 ML 750 MG/150 ML BAG IVPB SCH (10:16)
[2017-07-28] MEDS: (Cinnamon Bark [Cinnamon] 500 MG) PO SCH (10:29)
[2017-07-28] MEDS: (Cranberry [Cranberry] 500 MG) PO SCH (10:30)
[2017-07-28] MEDS: MILK THISTLE 500 MG PO SCH (10:30)
[2017-07-28] MEDS: Ibuprofen 400 MG TABLET PO PRN ×2 (13:57→21:57)
[2017-07-28] MEDS ORDERED: Meropenem 1,000 MG in Water for inj. (sterile) 10 ML IVP ONE (15:07)
[2017-07-28] MEDS: Meropenem 1,000 MG in Water for inj. (sterile) 10 ML IVP SCH (21:58)
--- NOTE | 2017-07-28 23:13 | Internal Med Progress Note ---
Date of Encounter: 07/28/17 Time of Encounter: 11:11 - Assessment and plan (1) Sepsis Current Visit: Yes Status: Acute Assessment and plan: Mr. Pace is a 41 year old male with PMH of multiple kidney stones in the pastwho was admitted here on [facility] where hae had stent placed but were not able to remove the stone who presented with fever, nausea and abdominal pain pain. Ct scan revealed Nonobstructive calculi in the bilateral kidneys. A left-sided double pigtail ureteral catheter is in good position. No evidence of left or right hydronephrosis or obstructive uropathy. Nonspecific fat stranding surrounding the bilateral kidneys and the left ureter. Pyelonephritis. Infection or inflammation particularly in the left kidney and ureter was not excluded. Tachycardia with fevers. Broaden coverage to meropenem will need to cover ESBL until sensitivities result. Has new ureteral stent, question if this is a source of infection, would appreciate input of Urology on the likelihood of that. Monitor closely, follow-up cultures. Will consult Urology in AM to evaluate. Qualifiers: Sepsis type: sepsis due to unspecified organism Qualified Code(s): A41.9 - Sepsis, unspecified organism (2) Pyelonephritis Current Visit: Yes Status: Acute Assessment and plan: Persistent fevers. On Rocephin, may be adequate coverage but with complicated urinary infection with sepsis, will broaden the coverage until sensitivities result. (3) Ureteral calculus Current Visit: No Status: Acute (4) Diabetes mellitus Current Visit: No Status: Chronic Qualifiers: Diabetes mellitus type: type 2 Diabetes mellitus complication status: without complication Diabetes mellitus longitudinal float operator insulin use: without detention use Qualified Code(s): E11.9 - Type 2 diabetes mellitus without complications (5) HTN (hypertension) Current Visit: No Status: Acute Qualifiers: Qualified Code(s): I10 - Essential (primary) hypertension (6) DVT prophylaxis Current Visit: Yes Status: Acute - Subjective Interval history: Patient had fevers all night, complained of lethargy and diaphoresis. Was also tachycardic. - Constitutional Vitals: Temp Pulse Resp BP Pulse Ox 98.5 F 92 14 132/78 95 07/28/17 19:00 07/28/17 19:00 07/28/17 19:00 07/28/17 19:00 07/28/17 19:00 General appearance: Present: A&O X 3 Exam: diaphoretic but alert and responding to questions appropriately. CVS: tachycardic, no mrg Lungs: CTAB Ext: no edema Internal Medicine: Result - Labs CBC & Chem 7: 07/28/17 03:58 07/28/17 03:58 Labs: Short CBC 07/28/17 Range/Units 03:58 WBC 10.7 (4.3-11.1) K/mcL Hgb 13.1 (12.9-16.9) g/dL Hct 38.4 (37.5-50.1) % Plt Count 136 L (140-400) K/mcL BMP 07/28/17 03:58 Sodium 134 L Potassium 4.0 Chloride 103 Carbon Dioxide 26 BUN 16 Creatinine 0.96 Glucose 187 H Calcium 9.1 Cardiac Enzymes 07/28/17 Range/Units 03:58 Troponin I < 0.03 (< 0.04) ng/mL Liver Function 07/28/17 Range/Units 03:58 Total Bilirubin 0.9 (0.3-1.0) mg/dL AST 17 (13-39) Units/L ALT 42 (7-52) Units/L Alkaline Phosphatase 84 (34-104) Units/L Albumin 3.4 L (3.5-5.7) g/dL - ABG Interpretation ABG results: PT/INR, D-dimer PT 14.5 Seconds (9.4-12.1) H 07/28/17 03:58 - VTE Documentation of Mechanical Device: Intermittent pneumatic compression device Consult Discharge Plan - Plan Referrals: Jamil Meek [Primary Care Provider] - Steve Donaldson [Family Provider] -
[2017-07-29] MEDS: 0.9 % Sodium Chloride 1,000 ML IVC SCH ×3 (02:34→16:40)
[2017-07-29] MEDS: Meropenem 1,000 MG in Water for inj. (sterile) 10 ML IVP SCH ×4 (02:35→20:41)
[2017-07-29 04:15] LABS: Basophils % 0.2 %; Eosinophils # 0.1 K/mcL (0.0-0.6); Eosinophils % 0.6 %; Hematocrit 35.9 % (37.5-50.1); Hemoglobin 12.3 g/dL (12.9-16.9); Lymphocytes # 0.9 K/mcL (0.6-4.6); Lymphocytes % 9.5 %; Mean Corpuscular HGB Conc 34.3 g/dL (31.6-35.5); Mean Corpuscular Hemoglobin 29.5 pg (28.0-33.3); Mean Corpuscular Volume 86.1 fL (83.0-100.0); Mean Platelet Volume 10.7 fL (9.4-12.4); Monocytes # 0.9 K/mcL (0.0-1.3); Monocytes % 9.1 %; Neutrophils # 7.5 K/mcL (1.6-8.9); Platelet Count 136 K/mcL (140-400); Red Blood Count 4.17 M/mcL (4.19-5.50); Red Cell Distribution Width 12.3 % (11.5-14.5); Segmented Neutrophils % 79.6 %
[2017-07-29 04:35] LABS: BUN/Creatinine Ratio 17 (6-26); Blood Urea Nitrogen 13 mg/dL (6-20); Calcium 9.2 mg/dL (8.6-10.3); Carbon Dioxide 25 mEq/L (23-29); Chloride 105 mEq/L (98-107); Glucose 204 mg/dL (70-105); Osmolality,Calculated 286 (280-300); Potassium 3.9 mEq/L (3.5-5.1); Sodium 135 mEq/L (136-145); eGFR For African Americans > 60 (> 60); eGFR For Non-African Americans > 60 (> 60)
[2017-07-29] MEDS: Ibuprofen 400 MG TABLET PO PRN ×2 (04:45→15:19)
[2017-07-29] MEDS: *HR* Heparin 5,000 UNIT/ML VIAL SQ SCH ×2 (04:49→17:54)
[2017-07-29] MEDS ORDERED: Acetaminophen 325 MG TABLET PO PRN (06:21)
[2017-07-29] MEDS: Lisinopril-HCTZ 20-12.5mg TABLET PO SCH (07:49)
[2017-07-29] MEDS: *HR* SitaGLIPtin 25 MG TABLET PO SCH (07:49)
[2017-07-29] MEDS: Insulin LISPRO 300 UNITS/3 ML VIAL SQ SCH ×4 (07:50→20:40)
[2017-07-29] MEDS: Levofloxacin 750 MG/150 ML 750 MG/150 ML BAG IVPB SCH (07:51)
[2017-07-29] MEDS: (Cinnamon Bark [Cinnamon] 500 MG) PO SCH (07:52)
[2017-07-29] MEDS: (Cranberry [Cranberry] 500 MG) PO SCH (07:52)
[2017-07-29] MEDS: MILK THISTLE 500 MG PO SCH (07:52)
[2017-07-29] MEDS ORDERED: Dextrose Gel 15 GM/37.5 ML TUBE PO PRN ×2 (08:47)
[2017-07-29] MEDS ORDERED: *HR* Dextrose 50 % in Water (Syg) 50 ML SYRINGE IVP PRN (08:47)
[2017-07-29] MEDS ORDERED: D5% in Water 1,000 ML IVC PRN (08:47)
[2017-07-29] MEDS ORDERED: Vancomycin 2,000 MG in D5% in Water 250 ML IVPB SCH (09:00)
--- NOTE | 2017-07-29 09:24 | Urology Progress Note ---
Date of Encounter: 07/29/17 Time of Encounter: 09:19 - Assessment and Plan (1) Pyelonephritis Current Visit: Yes Status: Acute Assessment and plan: Patient admitted for ongoing issues with fever and infection likely related to urolithiasis, indwelling stent and catheter. Urine culture on the demonstrated Aerococcus and sensitivities are pending as they were sent to an outside lab. I do not feel it is safe to manipulate this patient's urinary tract in the face of a possible untreated infection. The stent and catheter should stay in place for now. Unable to proceed with stone extraction until current issue resolved. Performing a literature review of Aerococcus it is a somewhat rare urinary pathogen. It appears it is often stent to Bactrim and fluoroquinolones. Vancomycin was mentioned as a more appropriate antibiotic. Suggest infectious disease recommendations regarding management Progress Note Subjective: pain is less, fever Objective Initial Vital Signs Temp Pulse Resp BP Pulse Ox 100.0 F H 105 18 148/82 97 07/27/17 09:21 07/27/17 09:21 07/27/17 09:21 07/27/17 09:21 07/27/17 09:21 - General physical appearance Present: well developed, no distress - Additional Exam urine clear in yap - Labs 07/29/17 03:29 07/29/17 03:29 Diabetes panel 07/29/17 Range/Units 03:29 Sodium 135 L (136-145) mEq/L Potassium 3.9 (3.5-5.1) mEq/L Chloride 105 (98-107) mEq/L Carbon Dioxide 25 (23-29) mEq/L BUN 13 (6-20) mg/dL Creatinine 0.75 (0.70-1.30) mg/dL Glucose 204 H (70-105) mg/dL Calcium 9.2 (8.6-10.3) mg/dL Calcium panel 07/29/17 Range/Units 03:29 Calcium 9.2 (8.6-10.3) mg/dL Pituitary panel 07/29/17 Range/Units 03:29 Sodium 135 L (136-145) mEq/L Potassium 3.9 (3.5-5.1) mEq/L Chloride 105 (98-107) mEq/L Carbon Dioxide 25 (23-29) mEq/L BUN 13 (6-20) mg/dL Creatinine 0.75 (0.70-1.30) mg/dL Glucose 204 H (70-105) mg/dL Calcium 9.2 (8.6-10.3) mg/dL Adrenal panel 07/29/17 Range/Units 03:29 Sodium 135 L (136-145) mEq/L Potassium 3.9 (3.5-5.1) mEq/L Chloride 105 (98-107) mEq/L Carbon Dioxide 25 (23-29) mEq/L BUN 13 (6-20) mg/dL Creatinine 0.75 (0.70-1.30) mg/dL Glucose 204 H (70-105) mg/dL Calcium 9.2 (8.6-10.3) mg/dL - VTE Documentation of Mechanical Device: Intermittent pneumatic compression device Consult Discharge Plan - Plan Referrals: Jamil Meek [Primary Care Provider] - Steve Donaldson [Family Provider] -
[2017-07-29] MEDS: Insulin DETEMIR 100 UNIT/ML X5UNITS SQ SCH ×2 (10:00→20:41)
[2017-07-29] MEDS: Vancomycin 2,000 MG in D5% in Water 500 ML IVPB SCH ×2 (10:45→22:14)
--- NOTE | 2017-07-29 21:08 | Internal Med Progress Note ---
Date of Encounter: 07/29/17 Time of Encounter: 13:06 - Assessment and plan (1) Sepsis Current Visit: Yes Status: Acute Assessment and plan: Mr. Pace is a 41 year old male with PMH of multiple kidney stones in the pastwho was admitted here on [facility] where hae had stent placed but were not able to remove the stone who presented with fever, nausea and abdominal pain pain. Ct scan revealed Nonobstructive calculi in the bilateral kidneys. A left-sided double pigtail ureteral catheter is in good position. No evidence of left or right hydronephrosis or obstructive uropathy. Nonspecific fat stranding surrounding the bilateral kidneys and the left ureter. Pyelonephritis. Infection or inflammation particularly in the left kidney and ureter was not excluded. 07/29 Urology consulted, also urine culture grew Aerococcus urinae and Vancomycin was started. Discussed case with Dr. Palma. Will continue Vancomycin, I will continue meropenem as I do feel the patient did clinically improve yesterday after starting that and discontinuing Rocephin and Levaquin. ID java developer consultant not available currently. Will need to consult in regards to this infection. Qualifiers: Sepsis type: sepsis due to unspecified organism Qualified Code(s): A41.9 - Sepsis, unspecified organism (2) Pyelonephritis Current Visit: Yes Status: Acute Assessment and plan: As per problem #1 (3) Ureteral calculus Current Visit: No Status: Acute (4) Diabetes mellitus Current Visit: No Status: Chronic Qualifiers: Diabetes mellitus type: type 2 Diabetes mellitus complication status: without complication Diabetes mellitus termite helper insulin use: without termite helper use Qualified Code(s): E11.9 - Type 2 diabetes mellitus without complications (5) HTN (hypertension) Current Visit: No Status: Acute Qualifiers: Hypertension type: essential hypertension Qualified Code(s): I10 - Essential (primary) hypertension (6) DVT prophylaxis Current Visit: Yes Status: Acute - Subjective Interval history: No acute events. Patient states he is feeling good. Denies any episodes of fevers/chills, N/V. Last fever was 07/28. - Constitutional Vitals: Temp Pulse Resp BP Pulse Ox 99.4 F 88 16 150/89 98 07/29/17 16:57 07/29/17 15:05 07/29/17 15:05 07/29/17 15:05 07/29/17 15:05 General appearance: Present: A&O X 3 - Head Head exam: Present: atraumatic, normocephalic - Eye Eye exam: Present: PERRL, conjuntiva pink, sclera anicteric Pupils: Present: PERRL - Neck Neck exam general surgery: Present: supple, trachea midline. Absent: lymphadenopathy - Respiratory Respiratory exam: Present: CTAB. Absent: accessory muscle use, rales, rhonchi, wheezes - Cardiovascular Cardiovascular exam: Present: RRR, +S1, +S2. Absent: diastolic murmur, gallop, rubs, systolic murmur - GI/Abdominal GI/Abdominal exam: Present: normal bowel sounds, soft, no peritoneal signs. Absent: distended, tenderness - Extremities Exam Extremities exam: Present: warm, radial pulses palpable and symmetrical. Absent : calf tenderness, cyanotic, pedal edema - Neurological Exam Neurological exam: Present: CN II-XII intact, oriented X3, no focal deficits. Absent: pronater drift, facial droop, speech deficit - Skin Skin exam: Present: dry, intact Internal Medicine: Result - Labs CBC & Chem 7: 07/29/17 03:29 07/29/17 03:29 Labs: Short CBC 07/29/17 Range/Units 03:29 WBC 9.4 (4.3-11.1) K/mcL Hgb 12.3 L (12.9-16.9) g/dL Hct 35.9 L (37.5-50.1) % Plt Count 136 L (140-400) K/mcL Neutrophils # 7.5 (1.6-8.9) K/mcL BMP 07/29/17 03:29 Sodium 135 L Potassium 3.9 Chloride 105 Carbon Dioxide 25 BUN 13 Creatinine 0.75 Glucose 204 H Calcium 9.2 - ABG Interpretation ABG results: PT/INR, D-dimer PT 14.5 Seconds (9.4-12.1) H 07/28/17 03:58 - VTE Documentation of Mechanical Device: Intermittent pneumatic compression device Consult Discharge Plan - Plan Referrals: Jamil Meek [Primary Care Provider] - Steve Donaldson [Family Provider] -
[2017-07-30] MEDS: Meropenem 1,000 MG in Water for inj. (sterile) 10 ML IVP SCH ×4 (03:37→20:37)
[2017-07-30] MEDS: 0.9 % Sodium Chloride 1,000 ML IVC SCH ×2 (03:37→14:33)
[2017-07-30] MEDS: Ibuprofen 400 MG TABLET PO PRN ×2 (03:43→18:03)
[2017-07-30 05:35] LABS: Basophils % 0.4 %; Eosinophils # 0.2 K/mcL (0.0-0.6); Eosinophils % 2.3 %; Hematocrit 34.6 % (37.5-50.1); Hemoglobin 11.9 g/dL (12.9-16.9); Immature Granulocytes % 1.4 % (0-4); Lymphocytes % 14.1 %; Mean Corpuscular HGB Conc 34.4 g/dL (31.6-35.5); Mean Corpuscular Hemoglobin 28.8 pg (28.0-33.3); Mean Corpuscular Volume 83.8 fL (83.0-100.0); Mean Platelet Volume 10.8 fL (9.4-12.4); Monocytes # 0.6 K/mcL (0.0-1.3); Monocytes % 7.8 %; Neutrophils # 5.3 K/mcL (1.6-8.9); Platelet Count 154 K/mcL (140-400); Red Blood Count 4.13 M/mcL (4.19-5.50); Red Cell Distribution Width 12.2 % (11.5-14.5)
[2017-07-30] MEDS: *HR* Heparin 5,000 UNIT/ML VIAL SQ SCH ×2 (05:49→17:02)
[2017-07-30 05:53] LABS: BUN/Creatinine Ratio 13 (6-26); Blood Urea Nitrogen 11 mg/dL (6-20); Calcium 9.2 mg/dL (8.6-10.3); Carbon Dioxide 29 mEq/L (23-29); Chloride 102 mEq/L (98-107); Glucose 229 mg/dL (70-105); Osmolality,Calculated 299 (280-300); Potassium 3.9 mEq/L (3.5-5.1); Sodium 141 mEq/L (136-145); eGFR For African Americans > 60 (> 60); eGFR For Non-African Americans > 60 (> 60)
[2017-07-30] MEDS: Lisinopril-HCTZ 20-12.5mg TABLET PO SCH (07:41)
[2017-07-30] MEDS: *HR* SitaGLIPtin 25 MG TABLET PO SCH (07:41)
[2017-07-30] MEDS: Insulin LISPRO 300 UNITS/3 ML VIAL SQ SCH ×4 (07:42→20:38)
[2017-07-30] MEDS: (Cinnamon Bark [Cinnamon] 500 MG) PO SCH (07:50)
[2017-07-30] MEDS: (Cranberry [Cranberry] 500 MG) PO SCH (07:51)
[2017-07-30] MEDS: MILK THISTLE 500 MG PO SCH (07:51)
--- NOTE | 2017-07-30 08:45 | Urology Progress Note ---
Date of Encounter: 07/30/17 Time of Encounter: 08:40 - Assessment and Plan (1) Pyelonephritis Current Visit: Yes Status: Acute Assessment and plan: sensitivities returned from on the Aerococcus. sensitive to vancomycin and Bactrim. resistant to Cipro/levaquin. will remove catheter today and continue vancomycin. If pt continues to improve, should be ok to discharge tomorrow on PO bactrim. Progress Note Subjective: feels better Narrative: pt states he feels much better after starting vancomycin. Objective Initial Vital Signs Temp Pulse Resp BP Pulse Ox 100.0 F H 105 18 148/82 97 07/27/17 09:21 07/27/17 09:21 07/27/17 09:21 07/27/17 09:21 07/27/17 09:21 - General physical appearance Present: no distress - Additional Exam yap clear urine. - Labs 07/30/17 04:58 07/30/17 04:58 Diabetes panel 07/30/17 Range/Units 04:58 Sodium 141 (136-145) mEq/L Potassium 3.9 (3.5-5.1) mEq/L Chloride 102 (98-107) mEq/L Carbon Dioxide 29 (23-29) mEq/L BUN 11 (6-20) mg/dL Creatinine 0.84 (0.70-1.30) mg/dL Glucose 229 H (70-105) mg/dL Calcium 9.2 (8.6-10.3) mg/dL Calcium panel 07/30/17 Range/Units 04:58 Calcium 9.2 (8.6-10.3) mg/dL Pituitary panel 07/30/17 Range/Units 04:58 Sodium 141 (136-145) mEq/L Potassium 3.9 (3.5-5.1) mEq/L Chloride 102 (98-107) mEq/L Carbon Dioxide 29 (23-29) mEq/L BUN 11 (6-20) mg/dL Creatinine 0.84 (0.70-1.30) mg/dL Glucose 229 H (70-105) mg/dL Calcium 9.2 (8.6-10.3) mg/dL Adrenal panel 07/30/17 Range/Units 04:58 Sodium 141 (136-145) mEq/L Potassium 3.9 (3.5-5.1) mEq/L Chloride 102 (98-107) mEq/L Carbon Dioxide 29 (23-29) mEq/L BUN 11 (6-20) mg/dL Creatinine 0.84 (0.70-1.30) mg/dL Glucose 229 H (70-105) mg/dL Calcium 9.2 (8.6-10.3) mg/dL - VTE Documentation of Mechanical Device: Intermittent pneumatic compression device Consult Discharge Plan - Plan Referrals: Jamil Meek [Primary Care Provider] - Steve Donaldson [Family Provider] -
[2017-07-30] MEDS ORDERED: Vancomycin 1,500 MG in D5% in Water 250 ML IVPB SCH (10:00)
--- NOTE | 2017-07-30 18:40 | Internal Med Progress Note ---
Date of Encounter: 07/30/17 Time of Encounter: 18:36 - Assessment and plan (1) Sepsis Current Visit: Yes Status: Resolved Assessment and plan: Mr. Pace is a 41 year old male with PMH of multiple kidney stones in the pastwho was admitted here on [facility] where hae had stent placed but were not able to remove the stone who presented with fever, nausea and abdominal pain pain. Ct scan revealed Nonobstructive calculi in the bilateral kidneys. A left-sided double pigtail ureteral catheter is in good position. No evidence of left or right hydronephrosis or obstructive uropathy. Nonspecific fat stranding surrounding the bilateral kidneys and the left ureter. Pyelonephritis. Infection or inflammation particularly in the left kidney and ureter was not excluded. 07/29 Urology consulted, also urine culture grew Aerococcus urinae. Sensitivities returned, organism sensitive to Bactrim. 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 Patient states he is feeling good. Denies any episodes of fevers/chills, N/V. - Constitutional Vitals: Temp Pulse Resp BP Pulse Ox 98.6 F 75 16 145/82 95 07/30/17 15:12 07/30/17 15:12 07/30/17 15:12 07/30/17 15:12 07/30/17 15:12 General appearance: Present: A&O X 3 - Head Head exam: Present: atraumatic, normocephalic - Eye Eye exam: Present: PERRL, conjuntiva pink, sclera anicteric Pupils: Present: PERRL - Neck Neck exam general surgery: Present: supple, trachea midline. Absent: lymphadenopathy - Respiratory Respiratory exam: Present: CTAB. Absent: accessory muscle use, rales, rhonchi, wheezes - Cardiovascular Cardiovascular exam: Present: RRR, +S1, +S2. Absent: diastolic murmur, gallop, rubs, systolic murmur - GI/Abdominal GI/Abdominal exam: Present: normal bowel sounds, soft, no peritoneal signs. Absent: distended, tenderness - Extremities Exam Extremities exam: Present: warm, radial pulses palpable and symmetrical. Absent : calf tenderness, cyanotic, pedal edema - Neurological Exam Neurological exam: Present: CN II-XII intact, oriented X3, no focal deficits. Absent: pronater drift, facial droop, speech deficit - Skin Skin exam: Present: dry, intact Internal Medicine: Result - Labs CBC & Chem 7: 07/30/17 04:58 07/30/17 04:58 Labs: Short CBC 07/30/17 Range/Units 04:58 WBC 7.1 (4.3-11.1) K/mcL Hgb 11.9 L (12.9-16.9) g/dL Hct 34.6 L (37.5-50.1) % Plt Count 154 (140-400) K/mcL Neutrophils # 5.3 (1.6-8.9) K/mcL BMP 07/30/17 04:58 Sodium 141 Potassium 3.9 Chloride 102 Carbon Dioxide 29 BUN 11 Creatinine 0.84 Glucose 229 H Calcium 9.2 - ABG Interpretation ABG results: PT/INR, D-dimer PT 14.5 Seconds (9.4-12.1) H 07/28/17 03:58 - VTE Documentation of Mechanical Device: Intermittent pneumatic compression device Consult Discharge Plan - Plan Referrals: Jamil Meek [Primary Care Provider] - Steve Donaldson [Family Provider] -
[2017-07-30] MEDS: Insulin DETEMIR 100 UNIT/ML X5UNITS SQ SCH (20:36)
[2017-07-31] MEDS ORDERED: Vancomycin 1,750 MG in D5% in Water 500 ML IVPB SCH
[2017-07-31] MEDS: Meropenem 1,000 MG in Water for inj. (sterile) 10 ML IVP SCH ×2 (03:27→09:20)
[2017-07-31] MEDS: *HR* Heparin 5,000 UNIT/ML VIAL SQ SCH (05:20)
[2017-07-31 05:29] LABS: BUN/Creatinine Ratio 17 (6-26); Blood Urea Nitrogen 12 mg/dL (6-20); Calcium 9.4 mg/dL (8.6-10.3); Carbon Dioxide 27 mEq/L (23-29); Chloride 107 mEq/L (98-107); Glucose 172 mg/dL (70-105); Osmolality,Calculated 292 (280-300); Potassium 3.4 mEq/L (3.5-5.1); Sodium 139 mEq/L (136-145); eGFR For African Americans > 60 (> 60); eGFR For Non-African Americans > 60 (> 60)
[2017-07-31 05:42] LABS: Basophils % 0.7 %; Eosinophils # 0.2 K/mcL (0.0-0.6); Eosinophils % 3.2 %; Hematocrit 35.2 % (37.5-50.1); Hemoglobin 12.1 g/dL (12.9-16.9); Immature Granulocytes % 2.7 % (0-4); Lymphocytes # 1.2 K/mcL (0.6-4.6); Lymphocytes % 20.5 %; Mean Corpuscular HGB Conc 34.4 g/dL (31.6-35.5); Mean Corpuscular Hemoglobin 28.9 pg (28.0-33.3); Mean Corpuscular Volume 84.2 fL (83.0-100.0); Mean Platelet Volume 10.5 fL (9.4-12.4); Monocytes # 0.5 K/mcL (0.0-1.3); Monocytes % 7.7 %; Neutrophils # 3.9 K/mcL (1.6-8.9); Platelet Count 204 K/mcL (140-400); Red Blood Count 4.18 M/mcL (4.19-5.50); Red Cell Distribution Width 11.9 % (11.5-14.5); Segmented Neutrophils % 65.2 %
--- NOTE | 2017-07-31 06:53 | Discharge Summary ---
Date of Encounter: 07/31/17 Time of Encounter: 06:50 - Discharge Diagnosis (1) Sepsis Priority: Primary Status: Resolved Qualifiers: Sepsis type: sepsis due to unspecified organism Qualified Code(s): A41.9 - Sepsis, unspecified organism (2) Pyelonephritis Priority: Secondary Status: Acute (3) Ureteral calculus Priority: Secondary Status: Acute (4) Diabetes mellitus Priority: Secondary Status: Chronic Qualifiers: Diabetes mellitus type: type 2 Diabetes mellitus complication status: without complication Diabetes mellitus extermination inspector insulin use: without extermination inspector use Qualified Code(s): E11.9 - Type 2 diabetes mellitus without complications (5) HTN (hypertension) Priority: Secondary Status: Acute Qualifiers: Hypertension type: essential hypertension Qualified Code(s): I10 - Essential (primary) hypertension (6) DVT prophylaxis Priority: Secondary Status: Acute - Discharge Medications Prescriptions: Sulfamethoxazole/Trimeth DS [Bactrim DS] 1 each PO BID 14 Days #28 tablet Home Medications: Lisinopril-HCTZ 20-12.5 [Prinzide 20-12.5] 1 tab PO DAILY 07/22/17 [History] Simvastatin [Zocor] 20 mg PO DAILY 07/22/17 [History] metFORMIN [Glucophage] 500 mg PO BID 07/22/17 [History] Cinnamon Bark [Cinnamon] 500 mg PO DAILY 07/27/17 [History] Cranberry 500 mg PO DAILY 07/27/17 [History] Docusate [Colace] 100 mg PO BID 07/27/17 [History] Milk Thistle 500 mg PO DAILY 07/27/17 [History] Oxycodone HCl/Acetaminophen [Percocet 5-325 mg Tablet] 1 tab PO TID PRN [History] SitaGLIPtin [Januvia] 25 mg PO DAILY 07/27/17 [History] Tamsulosin [Flomax] 0.4 mg PO DAILY 07/27/17 [History] Sulfamethoxazole/Trimeth DS [Bactrim DS] 1 each PO BID 14 Days #28 tablet [Rx] Allergies/Adverse Reactions: 3 Allergy/AdvReac Type Severity Reaction Status Date / Time codeine Allergy Hives Verified 07/27/17 13:45 Penicillins Allergy Difficulty Verified 07/27/17 13:45 Breathing Date of admission: 07/27/17 15:35 Primary care physician: Jamil Meek Consults: 07/29/17 08:52 Consult to Urology [CONS] Routine Consulting Provider: Urologfermín Pearson Reason for Consult: Pyelonephritis s/p stent Call Completed: No Discharging clinician: Elias Acharya - Patient Status Disposition: Home, Self-Care Condition: Good Functional capacity at discharge: independent ambulation Overall status at discharge: patient is progressing back to baseline - Discharge Instructions Follow Up With: Jamil Meek [Primary Care Provider] - Steve Donaldson [Family Provider] - - Diet and Activity Activity: increase activity as tolerated Diet: advance to your usual diet, diabetic diet Hospital course: Mr. Pace is a 41 year old male with PMH of multiple kidney stones in the past who was recently admitted (07/22/17) for uteral stent placement, presented with fever, N/V, and abdominal pain. Nonobstructive calculi in the bilateral kidneys. A left-sided double pigtail ureteral catheter is in good position. No evidence of left or right hydronephrosis or obstructive uropathy. Nonspecific fat stranding surrounding the bilateral kidneys and the left ureter. Pyelonephritis. He was was febrile and tachycardic and admitted for sepsis secondary to Pyelonephritis. He was started on broad spectrum antibiotics and Urology was consulted for possible infected stent. No urological interventions would be done during this admission because procedures may worsen sepsis. Urine culture returned positive for Aerococcus urinae and he was started on Vancomycin. Cultures returned positive to Bactrim, resistant to Levaquin/Cipro. He clinically improved, no longer septic. He was discharged home to complete a course of Bactrim with close follow-up. - Time Spent with Patient Total time spent providing and/or coordinating discharge services: - Constitutional Vitals: Temp Pulse Resp BP Pulse Ox 99.5 F 72 16 137/87 93 07/31/17 04:45 07/31/17 04:45 07/31/17 04:45 07/31/17 04:45 07/31/17 04:45 General appearance: Present: A&O X 3 - Head Head exam: Present: atraumatic, normocephalic - Eye Eye exam: Present: PERRL, conjuntiva pink, sclera anicteric Pupils: Present: PERRL - Neck Neck exam general surgery: Present: supple, trachea midline. Absent: lymphadenopathy - Respiratory Respiratory exam: Present: CTAB. Absent: accessory muscle use, rales, rhonchi, wheezes - Cardiovascular Cardiovascular exam: Present: RRR, +S1, +S2. Absent: diastolic murmur, gallop, rubs, systolic murmur - GI/Abdominal GI/Abdominal exam: Present: normal bowel sounds, soft, no peritoneal signs. Absent: distended, tenderness - Extremities Exam Extremities exam: Present: warm, radial pulses palpable and symmetrical. Absent : calf tenderness, cyanotic, pedal edema - Neurological Exam Neurological exam: Present: CN II-XII intact, oriented X3, no focal deficits. Absent: pronater drift, facial droop, speech deficit - Skin Skin exam: Present: dry, intact - VTE Documentation of Mechanical Device: Intermittent pneumatic compression device
[2017-07-31 07:35] VITALS: BP 144/85
--- NOTE | 2017-07-31 07:36 | Urology Progress Note ---
Date of Encounter: 07/31/17 Time of Encounter: 07:34 - Assessment and Plan (1) Pyelonephritis Current Visit: Yes Status: Resolved Assessment and plan: I will talk with [employer] and have our office call to schedule stone extraction. no need for followup. agree with bactrim for 2 weeks. Progress Note Subjective: feels better Narrative: pt doing better after switching to vanco and cath out. urinating well Objective Initial Vital Signs Temp Pulse Resp BP Pulse Ox 100.0 F H 105 18 148/82 97 07/27/17 09:21 07/27/17 09:21 07/27/17 09:21 07/27/17 09:21 07/27/17 09:21 - General physical appearance Present: no distress - Labs 07/31/17 04:45 07/31/17 04:45 Diabetes panel 07/31/17 Range/Units 04:45 Sodium 139 (136-145) mEq/L Potassium 3.4 L (3.5-5.1) mEq/L Chloride 107 (98-107) mEq/L Carbon Dioxide 27 (23-29) mEq/L BUN 12 (6-20) mg/dL Creatinine 0.71 (0.70-1.30) mg/dL Glucose 172 H (70-105) mg/dL Calcium 9.4 (8.6-10.3) mg/dL Calcium panel 07/31/17 Range/Units 04:45 Calcium 9.4 (8.6-10.3) mg/dL Pituitary panel 07/31/17 Range/Units 04:45 Sodium 139 (136-145) mEq/L Potassium 3.4 L (3.5-5.1) mEq/L Chloride 107 (98-107) mEq/L Carbon Dioxide 27 (23-29) mEq/L BUN 12 (6-20) mg/dL Creatinine 0.71 (0.70-1.30) mg/dL Glucose 172 H (70-105) mg/dL Calcium 9.4 (8.6-10.3) mg/dL Adrenal panel 07/31/17 Range/Units 04:45 Sodium 139 (136-145) mEq/L Potassium 3.4 L (3.5-5.1) mEq/L Chloride 107 (98-107) mEq/L Carbon Dioxide 27 (23-29) mEq/L BUN 12 (6-20) mg/dL Creatinine 0.71 (0.70-1.30) mg/dL Glucose 172 H (70-105) mg/dL Calcium 9.4 (8.6-10.3) mg/dL - VTE Documentation of Mechanical Device: Intermittent pneumatic compression device Consult Discharge Plan - Plan Referrals: Jamil Meek [Primary Care Provider] - Steve Donaldson [Family Provider] - Prescriptions: Sulfamethoxazole/Trimeth DS [Bactrim DS] 1 each PO BID 14 Days #28 tablet
[2017-07-31] MEDS: Insulin LISPRO 300 UNITS/3 ML VIAL SQ SCH (09:19)
[2017-07-31] MEDS: *HR* SitaGLIPtin 25 MG TABLET PO SCH (09:20)
[2017-07-31] MEDS: Lisinopril-HCTZ 20-12.5mg TABLET PO SCH (09:21)
[2017-07-31] MEDS: (Cinnamon Bark [Cinnamon] 500 MG) PO SCH (09:33)
[2017-07-31] MEDS: MILK THISTLE 500 MG PO SCH (09:33)
[2017-07-31] MEDS: (Cranberry [Cranberry] 500 MG) PO SCH (09:33)
[2017-07-31] MEDS ORDERED: Aminoglycoside Consult 1 EACH MC ONE (11:04)
== END 2017-07-31 11:05 | disposition home or self-care (01) | DRG 872 ==
LOC: EMEROO 09:19 → 3ANU 09:19
PROVIDERS: ADMIT Internal Medicine Nephrology; ATTEND Student in an Organized Health Care Education/Training Program